=== PATIENT | male | born 1955 | race African-American/Black ===

== ENCOUNTER 2017-02-20 09:27 | Emergency (ER) | payer MEDICAID, OTHER ==
[~2017-02-20] VITALS: Ht 185.4 cm; Wt 78.0 kg
[~2017-02-20 09:27] MED LIST: CEPH-568 PO; FOLI-43 PO; IBUP-1510 PO; LEVE500T19 PO; LISINOPRIL
[2017-02-20] MEDS ORDERED: HYDROCODONE/ACETAMINOPHEN 5/325MG TABLET PO ONE (10:00)
[2017-02-20] MEDS ORDERED: ONDANSETRON 4MG ODT PO ONE (10:00)
[2017-02-20] MEDS ORDERED: BACITRACIN/POLYMYXIN B SULFATE OINT 15GM TOP ONE (12:15)
[2017-02-20 12:21] VITALS: BP 132/82
== END 2017-02-20 12:27 | disposition home or self-care (01) ==
LOC: ER 09:31
DX: S00.83XA Contusion of other part of head, initial encounter (principal); S40.011A Contusion of right shoulder, initial encounter; E11.9 Type 2 diabetes mellitus without complications; I10 Essential (primary) hypertension; F17.200 Nicotine dependence, unspecified, uncomplicated; F16.10 Hallucinogen abuse, uncomplicated; Z79.899 Other long term (current) drug therapy; W19.XXXA Unspecified fall, initial encounter; Y93.02 Activity, running; Y99.8 Other external cause status; Y92.89 Other specified places as the place of occurrence of the external cause
CPT/HCPCS: 70450; 70486; 71010; 72125; 73030; 73080; 99284; Q0162; A4565

== ENCOUNTER 2017-03-17 14:00 | Emergency (ER) | payer OTHER ==
[~2017-03-17] VITALS: Ht 170.2 cm; Wt 60.0 kg
[2017-03-17 15:15] LABS: DIFFERENTIAL COMMENT 0; HEMOGLOBIN. 13.8 g/dL (14.0-18.0); MEAN CORPUSCULAR HEMOGLOBIN 34.9 pg (28.0-32.0); MEAN CORPUSCULAR HGB CONC 33.8 g/dL (31.0-37.0); MEAN CORPUSCULAR VOLUME 103.5 fL (80.0-94.0); PLATELET 201 x1000/uL (130-400); RED BLOOD CELL COUNT 3.97 mill/uL (4.7-6.1); RED CELL DISTRIBUTION WIDTH 13.1 % (11.6-14.6); WHITE BLOOD COUNT 5.7 x1000/uL (4.5-11.0)
[2017-03-17 15:18] LABS: CLARITY URINE CLEAR (CLEAR); COLOR URINE YELLOW (YELLOW); GLUCOSE URINE NEGATIVE (NEGATIVE); KETONES URINE NEGATIVE (NEGATIVE); LEUKOCYTE ESTERASE URINE NEGATIVE (NEGATIVE); NITRITE URINE NEGATIVE (NEGATIVE); OCCULT BLOOD URINE NEGATIVE (NEGATIVE); PROTEIN URINE NEGATIVE (NEGATIVE); SPECIFIC GRAVITY URINE 1.008 (1.005-1.030); UROBILINOGEN URINE 0.2 E.U./dL (0.2-1.0)
[2017-03-17 15:26] LABS: ANION GAP 15; CALCIUM 8.9 mg/dL (8.5-10.1); CARBON DIOXIDE 21 mEq/L (21-32); CHLORIDE 107 mEq/L (98-107); INDEX HEMOLYSI 1 (1-3); INDEX ICTERIC 1 (1-4); INDEX LIPEMIC 1 (1-3); UREA NITROGEN BLOOD 7 mg/dL (7-21); eGFR > 60 mL/min (>60)
[2017-03-17 15:34] LABS: *AMPHETAMINES SCREEN URINE NEGATIVE (NEGATIVE); *BARBITURATES SCREEN URINE NEGATIVE (NEGATIVE); *BENZODIAZEPINES SCREEN URINE NEGATIVE (NEGATIVE); *COCAINE SCREEN URINE NEGATIVE (NEGATIVE); CANNABINOID URINE SCREEN NEGATIVE (NEGATIVE); ECSTASY MDMA SCREEN URINE NEGATIVE (NEGATIVE); METHADONE URINE SCREEN NEGATIVE (NEGATIVE); OPIATES URINE SCREEN NEGATIVE (NEGATIVE); PHENCYCLIDINE URINE SCREEN PRESUMTIVE POSITIVE (NEGATIVE)
[2017-03-17 16:21] LABS: PLATELET ESTIMATE NORMAL
[2017-03-17 19:50] VITALS: BP 149/96
== END 2017-03-17 20:13 | disposition home or self-care (01) ==
LOC: ER 14:31
DX: R04.0 Epistaxis (principal); E11.9 Type 2 diabetes mellitus without complications; I10 Essential (primary) hypertension; F19.10 Other psychoactive substance abuse, uncomplicated; Z59.0 Homelessness
CPT/HCPCS: 36415; 80048; 80305; 80307; 80320; 80329; 81003; 85007; 85027; 99284

== ENCOUNTER 2018-12-28 10:25 | Emergency (ER) | payer OTHER ==
[~2018-12-28] VITALS: Ht 177.8 cm; Wt 68.0 kg
[~2018-12-28 10:25] MED LIST changes: -IBUP-1510 PO; +IBUP-2030 PO
[2018-12-28 11:11] LABS: BASOPHILS % 0.9 % (0.0-2.0); EOSINOPHILS % 0.9 % (0.0-5.0); HEMATOCRIT. 46.6 % (42.0-52.0); HEMOGLOBIN. 15.6 g/dL (14.0-18.0); LYMPHOCYTES % 26.1 % (20.0-50.0); MEAN CORPUSCULAR HEMOGLOBIN 35.8 pg (28.0-32.0); MEAN CORPUSCULAR VOLUME 107.1 fL (80.0-94.0); MEAN PLATELET VOLUME 7.7 fl (7.4-10.4); MONOCYTES % 4.3 % (2.0-8.0); NEUTROPHILS % 67.8 % (40.0-76.0); PLATELET 263 x1000/uL (130-400); RED BLOOD CELL COUNT 4.35 mill/uL (4.7-6.1); RED CELL DISTRIBUTION WIDTH 13.2 % (11.6-14.6)
[2018-12-28] MEDS ORDERED: SODIUM CHLORIDE 0.9% 1,000 ML IV ONE (11:15)
[2018-12-28 11:19] LABS: INR 1.1; PROTHROMBIN TIME 10.8 sec (9.1-11.1)
[2018-12-28 11:58] LABS: CHLORIDE 110 mEq/L (98-107)
[2018-12-28 20:30] VITALS: BP 129/79
== END 2018-12-28 20:31 | disposition home or self-care (01) ==
LOC: ER 10:25
DX: F10.129 Alcohol abuse with intoxication, unspecified (principal); F19.10 Other psychoactive substance abuse, uncomplicated; Y90.8 Blood alcohol level of 240 mg/100 ml or more; I10 Essential (primary) hypertension; E11.9 Type 2 diabetes mellitus without complications
CPT/HCPCS: 36415; 74176; 80053; 80320; 83690; 85025; 85610; 99284; Z7610; G0480

== ENCOUNTER 2020-12-17 13:07 | Emergency (ER) | payer OTHER ==
[~2020-12-17] VITALS: Ht 185.4 cm; Wt 74.0 kg
[2020-12-17 13:11] VITALS: BP 164/107
[2020-12-17] MEDS ORDERED: AMLO2.5T2 MT (13:36)
== END 2020-12-17 13:40 | disposition home or self-care (01) ==
LOC: ER 13:07
DX: I16.0 Hypertensive urgency (principal); F16.10 Hallucinogen abuse, uncomplicated; E11.9 Type 2 diabetes mellitus without complications; I10 Essential (primary) hypertension; Z98.890 Other specified postprocedural states; Z79.899 Other long term (current) drug therapy
CPT/HCPCS: 99283

== ENCOUNTER 2021-03-10 19:39 | Emergency (ER) | payer OTHER ==
[~2021-03-10] VITALS: Ht 185.4 cm; Wt 73.0 kg
[~2021-03-10 19:39] MED LIST changes: +AMLO2.5T2 MT
[2021-03-10 20:18] VITALS: BP 125/93
[2021-03-11 00:47] LABS: BASOPHILS % 0.7 % (0.0-2.0); EOSINOPHILS % 1.8 % (0.0-5.0); HEMOGLOBIN. 13.9 g/dL (14.0-18.0); LYMPHOCYTES % 43.7 % (20.0-50.0); MEAN CORPUSCULAR VOLUME 108.7 fL (80.0-94.0); MEAN PLATELET VOLUME 7.2 fl (7.4-10.4); NEUTROPHILS % 44.8 % (40.0-76.0); PLATELET 177 x1000/uL (130-400); RED BLOOD CELL COUNT 3.77 mill/uL (4.7-6.1); RED CELL DISTRIBUTION WIDTH 13.3 % (11.6-14.6)
[2021-03-11 00:57] LABS: CHLORIDE 108 mEq/L (98-107)
== END 2021-03-11 06:08 | disposition home or self-care (01) ==
LOC: ER 19:39
DX: R63.4 Abnormal weight loss (principal); R74.01 Elevation of levels of liver transaminase levels; F10.20 Alcohol dependence, uncomplicated; F17.200 Nicotine dependence, unspecified, uncomplicated; F16.10 Hallucinogen abuse, uncomplicated; I10 Essential (primary) hypertension; Z79.899 Other long term (current) drug therapy; Y90.9 Presence of alcohol in blood, level not specified
CPT/HCPCS: 36415; 71045; 74176; 80053; 85025; 93005; 99285

== ENCOUNTER 2022-07-25 10:55 | Emergency (ER) | payer OTHER ==
[~2022-07-25] VITALS: Ht 185.4 cm; Wt 79.0 kg
[~2022-07-25 10:55] MED LIST changes: -CEPH-568 PO
[2022-07-25] MEDS ORDERED: IBUPROFEN 600MG TABLET PO ONE (12:45)
[2022-07-25] MEDS ORDERED: IBUPROFEN 600MG TABLET PO NR (14:33)
[2022-07-25] MEDS ORDERED: IBUP-2029 MT (14:54)
[2022-07-25] MEDS ORDERED: TRAM50TA3 MT (14:54)
[2022-07-25 15:00] VITALS: BP 129/81
== END 2022-07-25 15:47 | disposition home or self-care (01) ==
LOC: ER 10:55
DX: S80.01XA Contusion of right knee, initial encounter (principal); S93.491A Sprain of other ligament of right ankle, initial encounter; M79.661 Pain in right lower leg; W01.0XXA Fall on same level from slipping, tripping and stumbling without subsequent striking against object, initial encounter; Y93.01 Activity, walking, marching and hiking; Y92.89 Other specified places as the place of occurrence of the external cause
CPT/HCPCS: 73564; 73590; 73610; 99284

== ENCOUNTER 2022-08-27 19:22 | Emergency (ER) | payer OTHER ==
[~2022-08-27] VITALS: Ht 177.8 cm; Wt 77.0 kg
[~2022-08-27 19:22] MED LIST changes: +IBUP-2029 MT; +TRAM50TA3 MT
[2022-08-27] MEDS ORDERED: ASPIRIN 81MG TABLET PO ONE (22:30)
[2022-08-27 22:44] LABS: HEMOGLOBIN. 13.3 g/dL (14.0-18.0); MEAN CORPUSCULAR HEMOGLOBIN 37.1 pg (28.0-32.0); MEAN CORPUSCULAR VOLUME 108.5 fL (80.0-94.0); MEAN PLATELET VOLUME 7.2 fl (7.4-10.4); PLATELET 222 x1000/uL (130-400); RED CELL DISTRIBUTION WIDTH 13.4 % (11.6-14.6)
[2022-08-27 22:48] LABS: CHLORIDE 110 mEq/L (98-107)
[2022-08-27 23:00] LABS: ETHANOL BLOOD 265 mg/dL
[2022-08-27 23:03] LABS: PLATELET ESTIMATE NORMAL
[2022-08-27] MEDS ORDERED: HYDROCODONE/ACETAMINOPHEN 5/325MG TABLET PO ONE (23:15)
[2022-08-27] MEDS ORDERED: IBUP-2029 MT (23:47)
[2022-08-28] MEDS ORDERED: ASPIRIN 81MG TABLET PO NR (03:00)
[2022-08-28] MEDS ORDERED: HYDROCODONE/ACETAMINOPHEN 5/325MG TABLET PO NR (03:00)
[2022-08-28] MEDS ORDERED: HYDROCODONE/ACETAMINOPHEN 10/325MG TABLET PO ONE (03:30)
[2022-08-28 05:30] VITALS: BP 110/56
== END 2022-08-28 05:45 | disposition home or self-care (01) ==
LOC: ER 19:22
DX: S82.401A Unspecified fracture of shaft of right fibula, initial encounter for closed fracture (principal); F10.129 Alcohol abuse with intoxication, unspecified; F16.10 Hallucinogen abuse, uncomplicated; R51.9 Headache, unspecified; E11.9 Type 2 diabetes mellitus without complications; I10 Essential (primary) hypertension; W18.30XA Fall on same level, unspecified, initial encounter; Y93.89 Activity, other specified; Y92.89 Other specified places as the place of occurrence of the external cause; Y99.8 Other external cause status; Y90.8 Blood alcohol level of 240 mg/100 ml or more
CPT/HCPCS: 29515; 36415; 70450; 71045; 73610; 80053; 80320; 83735; 83880; 84484; 85025; 93005; 99285; Z7610; G0480

== ENCOUNTER 2022-09-16 15:17 | Emergency (ER) | payer OTHER ==
[~2022-09-16] VITALS: Ht 185.4 cm; Wt 75.0 kg
[2022-09-16] MEDS ORDERED: ACETAMINOPHEN 325MG TABLET PO ONE (23:30)
[2022-09-17] MEDS ORDERED: IBUP-2028 MT (00:55)
[2022-09-17 01:49] VITALS: BP 159/77
== END 2022-09-17 01:45 | disposition home or self-care (01) ==
LOC: ER 15:17
DX: S82.831A Other fracture of upper and lower end of right fibula, initial encounter for closed fracture (principal); G89.11 Acute pain due to trauma; X58.XXXA Exposure to other specified factors, initial encounter; Y93.89 Activity, other specified; Y92.89 Other specified places as the place of occurrence of the external cause; I10 Essential (primary) hypertension; E11.9 Type 2 diabetes mellitus without complications
CPT/HCPCS: 29515; 73610; 93971; 99284